=== PATIENT | female | born 1985 | race Caucasian/White ===

== ENCOUNTER 2025-05-14 08:10 | Emergency (ER) | payer OTHER, SELFPAY ==
--- OUTSIDE RECORDS SUMMARY | 2006-03-06 19:00 | XMS_ITS | Continuity of Care Document ---
Author Organization [facility] Address [address] [place] [address] Phone Care Team Providers Care Video Control Operator Name Role Phone Conversion MD, Doctor Unavailable Unavailabl e Advance Directives Directive Yes / No Effective Date File Name No Information Encounters Encounter Description Practice Location Reason(s) For Visit Diagnoses Date Provider Providers [facility] [address], [place], [place], [id number], tel:[phone] [facility] No Information Conversion Doctor. [address] [place] [address], [facility], . [employer] [facility], [address], [place], [place], [address], tel:[phone] [facility] IDIOPATHIC SCOLIOSIS Miriam Driscoll. [address] , [address], [place], [place], [id number], . tel:[phone] [employer], [address], [place], [place], [address], tel:[phone] [facility] SCOLIOSIS NEC Angelica Rios. [address], [address], [place], [place], [id number]. tel:[phone] [employer], [address], [place], [place], [address], tel:[phone] [facility] JOINT PAIN-SHLDER Miriam Driscoll. [address] , [address], [place], [place], [id number], . tel:[phone] [employer], [address], [place], [place], [address], tel:[phone] Nikhil [facility]ila JOINT PAIN-ANKLE Angelica Rios. [address], [address], [place], [place], [id number]. tel:[phone] Family History Family Member Type Diagnosis Age At Onset No Information Immunizations Vaccine Date Status Comments 38085 - TD administered Source: Source Unspecified Payers Payer name Insurance type Covered alliance party ID Authoriza tion(s) No Information Social History Type Description Quantity Date Captured Comments Sex Female Smoking Status No Information Chief Complaint And Reason For Visit No Information Reason For Referral Reason For Referral No Information History Of Present Illness Encounter Date Complaint History Of Prese nt Illness No Information Functional Status Date Functional Assessmen t No Information Instructions Date Instruction Additional Infor mation No Information Assessments Type Assessment Date No Information Patient Care Teams Name Effective Dates (start - stop) Status Members No Information
--- NOTE | ~2025-05-14 | XR_ITS ---
EXAMINATION: XR lumbar spine 2-3V DATE: 05/14/2025 09:01 INDICATION: Low back pain. Prior disc rupture. TECHNIQUE: Anteroposterior and lateral views of the lumbar spine, and cone-down lateral view of the lumbosacral junction were obtained. COMPARISON: None. FINDINGS: 9 degrees lumbar dextrocurvature. Sagittal alignment is normal. Minimal to mild likely physiologic anterior wedging at T10-T12. Lumbar vertebral body heights are normal. Moderate disc height loss at L5-S1. Minimal to mild disc height loss at at T9-T10 and T10-T11. Sacrum and bilateral sacroiliac joints are unremarkable. IMPRESSION: 1. 9 degrees lumbar dextrocurvature with moderate disc height loss at L5-S1 and mild disc height loss at a few levels in the lower thoracic spine. Reviewed, dictated and finalized at location A.
--- NOTE | 2025-05-14 08:11 | ED_ITS ---
HPI - Back Pain/Injury General Chief Complaint: Back Pain/Injury Stated Complaint: Lower Back Pain Time Seen by Provider: 05/14/25 08:32 Source: patient and RN notes reviewed Mode of arrival: ambulatory Limitations: no limitations History of Present Illness HPI Narrative: 39-year-old female presents with right low back pain that radiates down her leg. Reports symptoms started yesterday. She denies injury or trauma. Reports history of a ruptured disc with surgery in 2019. She did not have injury at that time. She reports symptoms started after she use an elliptical as she normally does. She denies loss of bowel or bladder function, perianal anesthesia, weakness in any extremity. Reports she has taken an [id number] pain medication without much relief. She denies abdominal pain, fever. MD elicited complaint: back pain Related Data Allergies Allergy/AdvReac Type Severity Reaction Status Date / Time No Known Allergies Allergy Verified 05/14/25 08:22 Review of Systems Review of Systems: CONSTITUTIONAL: Denies malaise, chills, sweats, or fever. CARDIOVASCULAR: Denies chest pain, palpitations, or edema. RESPIRATORY: Denies cough or dyspnea. GASTROINTESTINAL: Denies abdominal pain, nausea, vomiting, diarrhea, loss of bowel function GENITOURINARY: Denies dysuria, hematuria, frequency, loss of bladder function. SKIN: Denies rash or itching. MUSCULOSKELETAL: Reports right low back pain that radiates down the right leg NEUROLOGIC: Denies numbness, weakness, or headache. All systems reviewed & are unremarkable except as noted in HPI and below PMFSH Comments At time of signature, agree with nursing past medical, surgical, social and family history. There is no relevant family history pertinent to the presenting complaint Exam Narrative: GENERAL: Well-appearing, well-nourished, and in no acute distress. HEAD: Normocephalic, atraumatic. EYES: PERRLA and EOMI. NECK: Supple. No lymphadenopathy. CHEST: Clear to auscultation. No respiratory distress. HEART: Regular rate and rhythm. Distal pulses palpable and equal, cap refill <3 seconds MUSCULOSKELETAL: Normal range of motion and strength in all extremities; 5/5 strength with plantar flexion and extension. Normal sensation in dermatomal distributions with sensitivity to light touch and pain. Low midline back tenderness to palpation. Right paraspinal tenderness. Transfers from sitting to standing. SKIN: Warm, dry, no rash. NEURO: No focal deficits. Alert and oriented x3. Normal gait. PSYCH: Normal mood and affect Course Course Emergency Course: Patient is aware of diagnosis, understands and agrees to treatment plan. Anticipatory guidance given. Patient agrees to follow-up as directed and is aware of reasons to seek care at the emergency department. Portions of this record may have been created with voice recognition software Level of Care: [facility] Visit Vital Signs Vital signs: Reviewed. MDM - Back Pain/Injury MDM Narrative Medical decision making narrative: I evaluated this in the [facility] care. History is obtained from patient who is an independent historian and physical exam was performed.? Available medical records were reviewed. ? Exam findings and relevant testing show no acute concerns or changes; patient is non-toxic appearing and is in no distress. No risk factors or findings concerning for epidural abscess, diskitis, vertebral osteomyelitis, cord compression, cauda equina, vertebral fracture or bone malignancy, AAA, or pyelonephritis. Patient instructed to consider further imaging and workup through their primary care physician as an outpatient if symptoms persist. ? Differential diagnosis and treatment plan were discussed with the patient. Patient agrees with discussion and after shared medical decision making agrees with plan of care. All questions were answered to the patient's satisfaction. Patient is appropriate for outpatient treatment and follow-up. Critical Care Time Critical Care Time Critical Care Time: No Discharge Plan Discharge Clinical Impression: Nonspecific low back pain Patient Disposition: Home Condition: Stable Instructions: Acute Low Back Pain (ED) Additional Instructions: Please follow up with your Primary Care Doctor within 48-72 hours - call for an appointment. Walking and other gentle exercising several times a week has been shown to improve back pain; bed rest is not recommended. Take prednisone, take muscle relaxers every 8 hours as needed for muscle spasm- do not drive or make any important decisions while on this medication for it can make you drowsy. You may apply heat or cold to the area as needed. If you experience any worsening pain, swelling, numbness, weakness please go to ER. Contact your doctor or go to the emergency department if you develop problems with bladder or bowel function, weakness or loss of feeling in one or both of your legs, or any other serious concerns. Patient Language: [place] Prescriptions: New cyclobenzaprine 10 mg tablet 10 mg PO TID PRN (Reason: muscle spasm) Qty: 20 0RF prednisone 50 mg tablet 50 mg PO DAILY 5 Days Qty: 5 0RF Follow-up/Referrals: UNKNOWN,DOCTOR [Non-Staff] Stand Alone Forms: Work/School Release IP Time of Disposition: 09:18
--- OUTSIDE RECORDS SUMMARY | 2025-05-14 08:18 | XMS_ITS | Continuity of Care Document ---
Author Name [facility] Organization [facility] Care Team Providers Care Commissioning Agent Name Role Phone [facility] Unavailable Unavailable Problems Combined list of problems from Department of Defense and Veterans Affairs facilities. It does not include entries that were removed or entered in error. Problem Status Onset Date Problem Type Date of Resolution Comments Source PCOS- polycystic ovary syndrome Active 07/21/2024 Diagnosis 6130C-Af-C - [facility] Unspecified abnormalities of heart beat Active 09/04/2018 Condition DoD Amenorrhea, unspecified Active 09/04/2018 Condition DoD Other migraine, not intractable, without status migrainosus Active 09/04/2018 Condition DoD Acne Active Condition 6130C-Af-C- [facility] PCOS- polycystic ovary syndrome Active Condition 0356C-AF-C - [address] joint pain in the left knee Active Condition DoD joint pain in the right knee Active Condition DoD Medications Combined list of outpatient medications from Department of Defense and Veterans Affairs facilities.Medications provided include 1) outpatient medications from the last 15 months, and 2) patient-reported medications. Medication Details Route Status Patient Instructions Prescription Expires Prescription Number Last Dispense Date Ordering Provider Order Date Order Qty Source MetFORMIN (Eqv-Fortam et) 1000 mg oral tablet, extended release 1 tab(s), Oral, BID, # 60 tab(s), 3 total refill(s ), Maintena are, Pharmacy : [facility] Oral (given by mouth) Ordered 4 2023 60.0 6130C-A f-C-375 [facility] norethindro ne 0.35 mg oral tablet 1 tab(s), Oral, Daily, for contrace ption, # 84 tab(s), 0 total refill(s ), Maintena nce, Pharmacy : [facility] Oral (given by mouth) Ordered 4 2023 84.0 6130C-A f-C-375 [facility] Ortho Tri-Cyclen Lo oral tablet 1 tab(s), Oral, Daily, # 84 tab(s), 3 total refill(s ), [facility], Pharmacy : [facility] Oral (given by mouth) Ordered 4 2023 84.0 6130C-A f-C-375 Th [facility] tretinoin 0.05% topical cream 1 appl(s), Topical, every day at bedtime, wash and dry affected area and wait 10 to 20 minutes before applicat ion. May change to every other day if drying skin, # 40 g, 2 total refill(s ), [facility], Pharmacy : [facility] Topica l (on the skin) Ordered 4 2023 40.0 6130C-A f-C-375 Th [facility] Anabella 3 mg-0.02 mg oral tablet 1 tab(s), Oral, Daily, # 84 tab(s), 0 total refill(s ), [facility], Pharmacy : [facility] Oral (given by mouth) Discont inued 07/21/20242023 84.0 6130C-A f-C-375 Th [facility] Immunizations Combined list of available immunizations from the Department of Defense and Veterans Affairs facilities. Immunization Series Date Given Administered By Site Reaction Lot Number CVX Code Drug Science Professor Status Comments Source COVID Vaccine Pfizer 2020 Laura barajas Arm [id number] P[facility]ER complet ed COVID Vaccine Pfizer 11/25/20 Given Ambulat ory Pharmac y SARS-COV-2 (COVID-19) vaccine, mRNA, spike protein, LNP, preservative free, 30 mcg/0.3mL dose 2 2020 Unknown, Provider [id number] Pf[employer], Inc (PFR) complet ed SARS-COV- 2 (COVID-19 ) vaccine, mRNA, spike protein, LNP, preservat roberto free, 30 mcg/0.3mL dose DoD COVID Vaccine Pfizer 2020 Saroj novak Arm [id number] [facility] complet ed COVID Vaccine Pfizer 11/04/20 Given Ambulat ory Pharmac y SARS-COV-2 (COVID-19) vaccine, mRNA, spike protein, LNP, preservative free, 30 mcg/0.3mL dose 1 2020 Unknown, Provider [id number] [employer] (PFR) complet ed SARS-COV- 2 (COVID-19 ) vaccine, mRNA, spike protein, LNP, preservat roberto free, 30 mcg/0.3mL dose DoD Results Combined list of recent chemistry, hematology and other laboratory results from Department of Defense and Veterans Affairs, ranging from 15 months to all on record, depending upon the facility. Order Name Results Value Reference Range Date Interpretation Specimen Comments Source Hematology Platelets.L C 288 10^3/u L 06/[address] [place] [address] Hematology Neutrophils .LC 63 % 06/[address] [place] [address] Hematology Lymphs.LC 24 % 06/[address] [place] [address] Hematology Monocytes.L C 9 % 06/[address] [place] [address] Hematology Eos.LC 3 % 06/[address] [place] [address] Hematology Basos.LC 1 % 06/[address] [place] [address] Hematology Neutrophils (Abs).LC 4.3 10^3/u L 06/[address] [place] [address] Hematology Lymphs (Abs).LC 1.6 10^3/u L 06/[address] [place] [address] Hematology Monocytes (Abs).LC 0.6 10^3/u L 06/[address] [place] [address] Hematology Eos (Abs).LC 0.2 10^3/u L 06/[address] [place] [address] Hematology Basos (Abs).LC 0.1 10^3/u L 06/[address] [place] [address] Hematology Immature Granulocyte s.LC 0 % 06/[address] [place] [address] Immature Grans (Abs).LC 0.0 10^3/u L 06/29 Result Comment: Performed At: [address] [id number] Flores Johnson PhD Ph:[phone] [address] [place] [address] WBC.LC 6.8 10^3/u L 06/[address] [place] [address] Hematology RBC Count.LC 4.20 10^6/u L 06/[address] [place] [address] Hematology Hemoglobin. LC 13.1 g/dL 06/[address] [place] [address] Hematocrit. LC 39.7 % 06/[address] [place] [address] Hematology MCV.LC 95 fL 06/[address] [place] [address] MCH.LC 31.2 pg 06/[address] [place] [address] MCHC.LC 33.0 g/dL 06/[address] [place] [address] RDW.LC 12.0 % 06/[address] [place] [address] Chemistry TSH 1.640 mIU/L 0.270 - 4.200 06/29 N Interpretive Data: Recommend: TPO/Thyroper oxidase Antibody when TSH result is > 4.2 uIU/mL [facility] TIBC 279 ug/dL 250 - 400 06/29 N 5600A-U [facility] Chemistry Iron 93 ug/dL 37 - 145 06/29 N Interpretive Data: METHODOLOGY: Testing performed by colorimetric assay. [facility] UIBC, 186.0 ug/dL 112.0 - 347.0 06/29 N [facility] Transferrin Sat 33 % 14 - 50 06/29 N 5600A-U [facility] Chemistry Testosteron e Total 33.3 ng/dL 8.4 - 48.1 06/29 N Interpretive Data: Testing methodology: Electrochemi luminescence immunoassay (ECLIA) 5600A-U [facility] Chemistry Potassium Lvl 3.9 mmol/L 3.5 - 5.1 06/[address] [place] [address] Chemistry Sodium 140 mmol/L 136 - 145 06/[address] [place] [address] Chemistry Alk Phos 58 U/L 40 - 150 06/29 N -[address] [place] [address] Chemistry Glucose Lvl 97 mg/dL 74 - 99 06/29 N -[address] [place] [address] Chemistry ALT 32 U/L 5 - 55 06/29 N -[address] [place] [address] Chemistry AGAP 9.00 0.00 - 15.00 06/29 N -[address] [place] [address] Chemistry Albumin 4.00 g/dL 3.50 - 5.20 06/29 N -[address] [place] [address] Chemistry Creatinine Level 0.80 mg/dL 0.57 - 1.11 06/29 N -[address] [place] [address] Chemistry CO2 22 mmol/L 22 - 29 06/29 N -[address] [place] [address] Chemistry Chloride 109 mmol/L 98 - 107 06/[address] [place] [address] Chemistry Calcium 9.5 mg/dL 8.4 - 10.2 06/29 N -[address] [place] [address] Chemistry BUN/Creat Ratio 18 mg/dL 12 - 20 06/29 N -[address] [place] [address] Chemistry Protein Total 6.7 g/dL 6.4 - 8.3 06/29 N -[address] [place] [address] Chemistry Bilirubin Total 0.4 mg/dL 0.2 - 1.2 06/29 N -[address] [place] [address] Chemistry BUN 14 mg/dL 7 - 20 06/29 N -[address] [place] [address] Chemistry AST 19 U/L 5 - 34 06/29 N -[address] [place] [address] Chemistry Triglycerid es 94 mg/dL 7 - 149 06/29 N Interpretive Data: AGES 0-9: Desirable: < 75 mg/dL Borderline High: 75-99 mg/dL High: >/= 100 mg/dL AGES 10-19: Desirable: < 90 mg/dL Borderline High: 90-129 mg/dL High: >/= 130 mg/dL ADULTS: Desirable: < 150 mg/dL Borderline High: 150-199 mg/dL High: >/= 240 mg/dL Very High: >/= 500 mg/dL [address] [place] [address] Chemistry LDL/HDL 3 06/[address] [place] [address] Chemistry LDL 113 mg/dL 100 - 130 06/29 N Interpretive Data: AGES 0-19: Desirable: < 110 mg/dL Borderline High: 110-129 mg/dL High: >/= 130 mg/dL ADULTS: Desirable: <100 mg/dL Near/above optimal: 100-130 mg/dL Borderline High: 131-159 mg/dL High: 160-189 mg/dL Very High: 190 mg/dL [address] [place] [address] Chemistry HDL Cholesterol 42 mg/dL 40 - 59 06/29 N Interpretive Data: HDL (HIGH DENSITY LIPOPROTEIN) : ADULTS: Low: < 40 mg/dL High: >/= 60 mg/dL AGES 0 -19: Low: < 40 mg/dL Borderline Low: 40 - 45 mg/dL Acceptable: > 45 mg/dL [address] [place] [address] Chemistry Cholesterol Total 154 mg/dL 06/29 N Interpretive Data: According to the [place] [employer]: AGES 0-19: Desirable: < 170 mg/dL Borderline High: 170-199 mg/dL High Blood Cholesterol: >/= 200 mg/dL ADULTS: Desirable < 200 mg/dL Borderline High: 200-239 mg/dL High Blood Cholesterol: >/= 240 mg/dL [address] [place] [address] Chemistry Chol/HDL 4 mg/dL 06/[address] [place] [address] Chemistry Hemoglobin A1c 5.1 % 4.0 - 5.6 06/29 N Interpretive Data: Normal: 4.0 - 5.6% Increased Risk: 5.7 - 6.4% Diabetic Range: 6.5% For patients without diabetes, the normal range for the hemoglobin A1c test is between 4% and 5.6%. Hemoglobin A1c levels between 5.7% and 6.4% indicate increased risk of diabetes, and levels of 6.5% or higher indicate diabetes. Because studies have repeatedly shown that dow-vi-srfto ol diabetes results in complication s from the disease, the goal for people with diabetes is a hemoglobin A1c less than 7%. The higher the hemoglobin A1c, the higher the risks of developing complication s related to diabetes. If confirmation is needed, consider recalling the patient and ordering Hemoglobin Electrophore sis. - [address] [place] [address] Chemistry eAvg Glucose 100 mg/dL 06/[address] [place] [address] Chemistry eGFR CKD EPI 97 mL/min /1.73_ m2 06/29 Interpretive Data: Estimated Glomerular Filtration Rate (eGFR) calculated using the 2020 Chronic Kidney Disease-Epid emiology (CKD-EPI) Collaboratio n creatinine equation; units of measure are mL/min/1.73 m2. Results are only valid for adults (>=18 years) whose serum creatinine is in steady state. eGFR calculations are not valid for patients with acute kidney injury and for patients on dialysis. Creatinine-b ased estimates of kidney function may also be inaccurate in patients with reduced creatinine generation due to decreased muscle mass (e.g., malnutrition , severe hypoalbumine judit, sarcopenia, chronic neuromuscula r disease, amputations, severe heart failure or liver disease) and in patients with increased creatinine generation due to increased muscle mass (e.g., muscle builders, anabolic steroids) or increased dietary intake. CKD is diagnosed based on abnormalitie s of kidney structure or function, present for >3 months, with implications for health and disease. CKD is classified and staged based on cause, eGFR and albuminuria (quantified as urine albumin to creatinine ratio). An eGFR >60 mL/min/1.73 m2 in the absence of increased urine albumin excretion or structural abnormalitie s does not CKD. eGFR provides only an estimate of measured GFR within +/- 30% for most patients. As mentioned, nutritional status and muscle mass, among many factors, may lead to inaccuracy in the estimate. Consider ordering the creatinine-c ystatin C panel if better accuracy is needed for clinical decision-ruth ann ing. eGFR (mL/min/1.73 m2) CKD stage Interpretati on Normal 60-89 Mild decrease 45-59 Mild to moderate decrease 30-44 Moderate to severe decrease 15-29 Severe decrease <15 Kidney failure - [address] [place] [address] Vital Signs Combined list of inpatient and outpatient Vital Signs from Department of Defense and Veterans Affairs, ranging from 12 months to all on record, depending upon the facility. Vital Sign Value Date Comments Source Blood Pressure Manual Automatic 06/26/2024 13:12:00 1662L-Qs-S-[facility]Th [facility] Systolic Blood Pressure 121 mm[Hg] 06/26/2024 13:12:00 2840G-Rm-B-[facility] Diastolic Blood Pressure 83 mm[Hg] 06/26/2024 13:12:00 8508V-Ll-B-[facility] BP Site Left arm 06/26/2024 13:12:00 6130C -Af-C-[facility] Mean Arterial Pressure, Cuff (Calc) 96 mm[Hg] 06/26/2024 13:12:00 5134R-Hq-G-3 75Th [facility] Peripheral Pulse Rate 82 bpm 06/26/2024 13:12:00 9543J-Mv-S-[facility] Respiratory Rate 16 br/min 06/26/2024 13:12:00 9938I-Bm-D-[facility] Peripheral Pulse Rate 79 bpm 12/02/2023 11:58:00 6332D-VF-T-628th [facility] Blood Pressure Manual Automatic 12/02/2023 11:58:00 3709Y-XR-H-628th [facility] BP Site Right arm 12/02/2023 11:58:00 0356C -AF-C-628th [facility] Mean Arterial Pressure, Cuff (Calc) 99 mm[Hg] 12/02/2023 11:58:00 7343G-TJ-M-6 28th [facility] Temperature Oral 37 Chaya 12/02/2023 11:58:00 5409L-MH-V-628th [facility] Systolic Blood Pressure 132 mm[Hg] 12/02/2023 11:58:00 0856O-TN-A-628th [facility] Diastolic Blood Pressure 82 mm[Hg] 12/02/2023 11:58:00 7547M-FA-R-628th [facility] Respiratory Rate 18 br/min 12/02/2023 11:58:00 3156T-TV-G-628th [facility] Peripheral Pulse Rate 80 bpm 06/09/2024 13:11:00 4989N-Yc-N-[facility]Th [facility] Systolic Blood Pressure 143 mm[Hg] 06/09/2024 13:11:00 3456G-Fl-X-375[facility] Diastolic Blood Pressure 82 mm[Hg] 06/09/2024 13:11:00 2796T-Er-I-375[facility] BP Site Left arm 06/09/2024 13:11:00 6130C -Af-C-[facility] Mean Arterial Pressure, Cuff (Calc) 102 mm[Hg] 06/09/2024 13:11:00 2910H-Td-T-3 75Th [facility] Blood Pressure Manual Automatic 06/09/2024 13:11:00 9294V-Xp-P-375Th [facility] Encounters Combined list of: 1) Encounters from Department of Veterans Affairs facilities going backup to the last 18 months, not all [place] inpatient encounters are included; 2) Encounters from the Department of Defense facilities going backup to 280 months. Location Location Details Encounter Type Encounter Number Reason For Visit Attending Provider ADM Date DC Date Status Disposition Source [address] [place] [address] Cam [facility]Sco tt [facility] Blue) OUTPATIENT [id number] pain, swellin g in left knee x 2 weeks [phone] DAMIR SANCHES 04/29 Released w/o Limitations [address] [place] [address] Cam [facility] [address] [place] [address] Cam [facility])(Sco tt [facility] Res Green) TELE CONSULT [id number] Notes Entered by: KEANU VELARDE 20 May 2013 1122 ------- ------- ------- ------- -- Devin juan /Geovanny / DAMIR SANCHES 05/[address] [place] [address] Cam [facility])(S [facility] Res Tm Green) [address] [place] [address] Cam [facility])(Sco tt [facility] Green) TELE CONSULT [id number] Notes Entered by: RAPHAEL SKY 15 Jun 2013 1106 ------- ------- ------- ------- -- Isak Small - [id number] after 2:30 today/t omorrow MOSES SEQUEIRA 06/15 [facility] Cam [facility]S [facility] Fam Res Tm Green) [facility] Fam Res Tm Red) OUTPATIENT [id number] [place] lio kemp HUMPHREY NG 12/21 Released w/o Limitations [facility])(S [facility] Fam Res Tm Red) [facility] Fam Res Tm Red) TELE CONSULT [id number] Notes Entered by: Pérez JACQUES 18 Feb 2015 1432 ------- ------- ------- ------- -- Sx sore toe pat out of state/P ersinge r/035 [id number] DARIAN RGEGORY 02/18 [facility] [place] ([facility])(S [facility] Fam Res Tm Red) 31 [facility] [employer](Pete [facility] Team B [place]) OUTPATIENT [id number] routine annual pe ESTELA VILLAGRAN 02/28 Released w/o Limitations 31 [employer](A vi [facility] Team B [place]) [facility](87 [facility] Team Red) OUTPATIENT [id number] Phyisca l/Migra ASHLEIGH Michaud 09/04 Released w/o Limitations [facility](8 7 [facility] Team Red) [facility](87 [facility] Team White) OUTPATIENT [id number] 2 medicat ion refill ZBIGNIEWJOE 01/19 Released w/o Limitations [facility](8 7 [facility] Team White) [facility](87 [facility] Team Red) TELE CONSULT [id number] Notes Entered by: YUMIKO IGNACIO 27 Jan 2019 0824 ------- ------- ------- ------- -- Network Results - MR BRAIN W/O-03/11 ZBIGNIEWKIARAA A 01/27 [facility](8 7 [facility] Team Red) [facility](87 [facility] Team Red) OUTPATIENT [id number] Severe back pain ZBIGNIEWJOE 02/27 Released w/o Limitations [facility](8 7 [facility] Team Red) [facility](87 [facility] Team Blue) TELE CONSULT [id number] Notes Entered by: DEISY CORTES 11 Mar 2019 0753 ------- ------- ------- ------- -- Network Results - - 03/02/19 ROZ BHATT 03/11 [facility](8 7 [facility] Team Blue) 0055A-375 th [facility] silvia Between Visit [id number] 07/09 Discharge Disposition: Home or Self Care 0055A-3 75th [facility]- [facility] 0055C-375 th [facility] Between Visit [id number] 07/10 Discharge Disposition: Home or Self Care 0055C-3 75th [facility] 0055A-375 th [facility] silvia Between Visit [id number] 07/13 Discharge Disposition: Home or Self Care 0055A-3 75th [facility]- [facility] 0055A-375 th [facility] silvia Outpatient [id number] LEA BRUCE 07/15 Discharge Disposition: Home or Self Care 0055A-3 75th [facility] 6130C-Af- C-375Th [facility] silvia Clinic [id number] Polycys tic ovarian syndrom e KIERRA TKASUNIC 07/21 Discharge Disposition: Home or Self Care 6130C-A f-C-375 Th [facility]- [facility] Procedures Combined list of: 1) Procedures from Department of Veterans Affairs facilities going back up to thelast 18 months, not all VA non-surgical procedures are included; 2) All procedures from the Department of Defense facilities. Procedure Procedure Type Code Date Perfomer Comments Sourc e No data available for this section Ambulatory P harmacy Social History Combined list of available smoking, tobacco, and other social history from Department of Defense and Veterans Affairs facilities. Social History Type Response Date Comment Sourc e Tobacco Cigarette use: Never-cigarette user. Other Tobacco use: Never-other tobacco user (not cigarettes). Ambulatory Pharma cy Sexual Orientation Ambula tory Pharmacy Gender identity Ambulator y Pharmacy Sex Representation Female (finding) Unknown Organization This section is an empty social history section. DoD Assessment and Plan Combined list of future care activities from Department of Defense and Veterans Affairs facilities (e.g., assessment and plan notes, appointments, orders, and referrals). Additional future care activities may be listed in the Plan of Care section. Result Assessment and Plan Date Source Assessment and Plan Extracted from:Title : [facility]avy[facility]ic_PCOS virtual f/u Author: KIERRA EDWARDS DO Date: 07/21/24 1. P COS- polycystic ovary syndrome Patient clear competent without any signs of stress on gathering the phone line. C hronic uncontrolled -PCOS clinically diagnosed by [place] criteria 2 out of 3 p resent: -Hirsutism - I rregular periods - US pelvis was normal without evidence of cysts -Combined OCP side effect of daily bleeding (1 pad per day) -Discontinued combined OCP -Start P4 only pill, mini pill 0.35 mg prescribed -If progesterone only pill i s ineffective a t 1 month c onsider r eferral t o LAUNDRY AIDE g iven p atient does not desire IUD a nd would prefer O CPs o nly a nd after PCP attempt with combined and progesterone only w arrants s econdary opinion f or management -Continue metformin g iven metabolic risk of PCOS a nd counseled o n how to take the medication -Will follow-up virtually w ithin 1 month Capt Kevyn Altamirano), BROKO, Core Machine Tender, PGY-2 Cam [facility] Ordered: Addendum by DRAKE RENTERIA DO on July 21, 2024 13:38:36 CDT I certify that I was present for case discussion in the Family Medicine preceptor room at the time of this encounter. I have reviewed the note and agree with the findings, assessment, and plan except as I have documented below. Follow up as listed. All labs/imaging/consults to be followed by the ordering provider. Capt Vargas DO, [facility], Staff Physician Extracted from:Title: Javyunic_PCOS Author: KIERRA EDWARDS DO Date: 06/26/24 1. P COS- polycystic ovary syndrome Chronic uncomplicated PCOS clinically diagnosed by [place] criteria 2 out of 3 p resent: Hirsutism Irregular periods Started OCP Started metformin g iven metabolic risk of PCOS a nd counseled o n how to take the medication Will follow-up virtually w ith her lab results a nd ultrasound results w hich she will obtain Saturday -Labs ordered by previous provider: -Pelvic US to eval ovaries - r/o tumors and monitor PCOS O rdered: CBC w/ Diff Comprehensive Metabolic Panel Hemoglobin A1c Iron Studies Panel Lipid Panel Testosterone Total TSH w/ Reflex FT4 and Total T3 US Pelvis w/ Transvag non-OB Limited Ordered: metFORMIN(MetFORMIN (Eqv-Fortamet) 1000 mg oral tablet, extended release), 1 tab(s), Oral, BID, # 60 tab(s), 3 total refill(s), Maintenance, 1 tab(s) Oral BID, Pharmacy: [facility] 2. A cne 2. A cne H x anc exam c/w acne -continue with tretinoin tx -Discussed home daily skin care -Consider benzoyl peroxide if further control of acne desired Capt Evelia (), [facility] Core Machine Tender, PGY-2 Cam [facility] Addendum by DARIAN NEAL MD on June 26, 2024 09:13:24 CDT I certify that I was present for case discussion in the Family Medicine preceptor room at the time of this encounter. I have reviewed the note and agree with the findings, assessment, and plan except as I have documented below. Follow up as listed. All labs/imaging/consults to be followed by the ordering provider. Maj Kevyn Cabrera) Family Medicine Physician [facility] Cam [place], [place] Extracted from:Title: FM- PCOS Author: LEA LAROSE MD Date: 06/09/24 1. P COS- polycystic ovary syndrome Hx of PCOS d x i n 2019 - no records available Hx and physical c/w PCOS symptoms, but irregular cycles and breakthrough bleeding more common now.? Notes fatigue and wt gain. Plan: -Lab w/u for fatigue and PCOS eval -Pelvic US to eval ovaries - r/o tumors and monitor PCOS Ordered: CBC w/ Diff Comprehensive Metabolic Panel Hemoglobin A1c Iron Studies Panel Lipid Panel Testosterone Total TSH w/ Reflex FT4 and Total T3 US Pelvis w/ Transvag non-OB Limited 2. A cne Hx anc exam c/w acne -Start with tretinoin tx -Discussed home daily skin care -Add benzoyl peroxide if minimal change in 4-6 weeks Maj SUE, [employer], MD [employer] Family Medicine, PGY-3 Orders: norgestimate-ethinyl estradiol(Ortho Tri-Cyclen Lo oral tablet), 1 tab(s), Oral, Daily, # 84 tab(s), 3 total refill(s), Maintenance, 1 tab(s) Oral Daily, Pharmacy: [facility] [Not filled] tretinoin topical(tretinoin 0.05% topical cream), 1 appl(s), Topical, every day at bedtime, wash and dry affected area and wait 10 to 20 minutes before application. May change to every other day if drying skin, # 40 g, 2 total refill(s), Maintenance, 1 appl(s) Topical every day at bedtime,Instr:wash... [ Addendum by RIKKI SESAY MD on June 15, 2024 07:31:38 CDT I certify that I was present for case discussion in the Family Medicine preceptor room at the time of this encounter. I have reviewed the note and agree with the findings, assessment, and plan except as I have documented below. Follow up as listed. All labs/imaging/consults to be followed by the ordering provider. Rikki Sesay MD Extracted from:Title: Office: Initial visit Author: VIRGILIO JOHNSON PA-C Date: 12/02/23 1. S tress 37 Years F emale w ith recent life stressors. Hx of mild anxiety, self-managed, but has worsened with husbands recent deployment and loss of her 2 dogs. Discussed treatment options including counseling and medications. Mental Health referral placed for counseling. She would like to defer medication at this point F/u PRN Pt verbalized understanding and agrees to plan Referral: 37 Years F emale w ith recent life stressors and loss of pets, needing counseling. Please authorize for eval and treat. Thank you! Ordered: Referral Request 2.0 - DoD 2. P COS- polycystic ovary syndrome Hx of PCOS. Had brief discussion about treatment options. She will schedule with [facility] for further discussion and treatment options. F/u PRN Pt verbalized understanding and agrees to plan 05/14/2025 [id number] [facility] Assessment and Plan Extracted from:Title : [facility]_PCOS virtual f/u Author: KIERRA EDWARDS, DO Date: 07/21/24 1. P COS- polycystic ovary syndrome Patient clear competent without any signs of stress on gathering the phone line. C hronic uncontrolled -PCOS clinically diagnosed by [place] criteria 2 out of 3 p resent: -Hirsutism - I rregular periods - US pelvis was normal without evidence of cysts -Combined OCP side effect of daily bleeding (1 pad per day) -Discontinued combined OCP -Start P4 only pill, mini pill 0.35 mg prescribed -If progesterone only pill i s ineffective a t 1 month c onsider r eferral t o LAUNDRY AIDE g iven p atient does not desire IUD a nd would prefer O CPs o nly a nd after PCP attempt with combined and progesterone only w arrants s econdary opinion f or management -Continue metformin g iven metabolic risk of PCOS a nd counseled o n how to take the medication -Will follow-up virtually w ithin 1 month Capt Kevyn Altamirano), ODILIA, Core Machine Tender, PGY-2 [employer] Ordered: Addendum by RDAKE RENTERIA DO on July 21, 2024 13:38:36 CDT I certify that I was present for case discussion in the Family Medicine preceptor room at the time of this encounter. I have reviewed the note and agree with the findings, assessment, and plan except as I have documented below. Follow up as listed. All labs/imaging/consults to be followed by the ordering provider. Drake Renteria DO, , BROOK, Staff Physician Extracted from:Title: [facility]_PCOS Author: KIERRA EDWARDS, DO Date: 06/26/24 1. P COS- polycystic ovary syndrome Chronic uncomplicated PCOS clinically diagnosed by [place] criteria 2 out of 3 p resent: Hirsutism Irregular periods Started OCP Started metformin g iven metabolic risk of PCOS a nd counseled o n how to take the medication Will follow-up virtually w ith her lab results a nd ultrasound results w hich she will obtain Saturday -Labs ordered by previous provider: -Pelvic US to eval ovaries - r/o tumors and monitor PCOS O rdered: CBC w/ Diff Comprehensive Metabolic Panel Hemoglobin A1c Iron Studies Panel Lipid Panel Testosterone Total TSH w/ Reflex FT4 and Total T3 US Pelvis w/ Transvag non-OB Limited Ordered: metFORMIN(MetFORMIN (Eqv-Fortamet) 1000 mg oral tablet, extended release), 1 tab(s), Oral, BID, # 60 tab(s), 3 total refill(s), Maintenance, 1 tab(s) Oral BID, Pharmacy: [facility] 2. A cne 2. A cne H x anc exam c/w acne -continue with tretinoin tx -Discussed home daily skin care -Consider benzoyl peroxide if further control of acne desired Capt Evelia (), [facility] Core Machine Tender, PGY-2 [place] Addendum by DARIAN NEAL MD on June 26, 2024 09:13:24 CDT I certify that I was present for case discussion in the Family Medicine preceptor room at the time of this encounter. I have reviewed the note and agree with the findings, assessment, and plan except as I have documented below. Follow up as listed. All labs/imaging/consults to be followed by the ordering provider. Maj Kevyn Cabrera) Family Medicine Physician [facility] [place], [place] Extracted from:Title: FM- PCOS Author: LEA LAROSE MD Date: 06/09/24 1. P COS- polycystic ovary syndrome Hx of PCOS d x i n 2019 - no records available Hx and physical c/w PCOS symptoms, but irregular cycles and breakthrough bleeding more common now.? Notes fatigue and wt gain. Plan: -Lab w/u for fatigue and PCOS eval -Pelvic US to eval ovaries - r/o tumors and monitor PCOS Ordered: CBC w/ Diff Comprehensive Metabolic Panel Hemoglobin A1c Iron Studies Panel Lipid Panel Testosterone Total TSH w/ Reflex FT4 and Total T3 US Pelvis w/ Transvag non-OB Limited 2. A cne Hx anc exam c/w acne -Start with tretinoin tx -Discussed home daily skin care -Add benzoyl peroxide if minimal change in 4-6 weeks Maj SUE, [facility], MD [place] Family Medicine, PGY-3 Orders: norgestimate-ethinyl estradiol(Ortho Tri-Cyclen Lo oral tablet), 1 tab(s), Oral, Daily, # 84 tab(s), 3 total refill(s), Maintenance, 1 tab(s) Oral Daily, Pharmacy: [facility] [Not filled] tretinoin topical(tretinoin 0.05% topical cream), 1 appl(s), Topical, every day at bedtime, wash and dry affected area and wait 10 to 20 minutes before application. May change to every other day if drying skin, # 40 g, 2 total refill(s), Maintenance, 1 appl(s) Topical every day at bedtime,Instr:wash... [ Addendum by RIKKI SESAY MD on June 15, 2024 07:31:38 CDT I certify that I was present for case discussion in the Family Medicine preceptor room at the time of this encounter. I have reviewed the note and agree with the findings, assessment, and plan except as I have documented below. Follow up as listed. All labs/imaging/consults to be followed by the ordering provider. Rikki Sesay MD Extracted from:Title: Office: Initial visit Author: VIRGILIO JOHNSON PA-C Date: 12/02/23 1. S tress 37 Years F emale w ith recent life stressors. Hx of mild anxiety, self-managed, but has worsened with husbands recent deployment and loss of her 2 dogs. Discussed treatment options including counseling and medications. Mental Health referral placed for counseling. She would like to defer medication at this point F/u PRN Pt verbalized understanding and agrees to plan Referral: 37 Years F emale w ith recent life stressors and loss of pets, needing counseling. Please authorize for eval and treat. Thank you! Ordered: Referral Request 2.0 - [facility]D 2. P COS- polycystic ovary syndrome Hx of PCOS. Had brief discussion about treatment options. She will schedule with [facility] for further discussion and treatment options. F/u PRN Pt verbalized understanding and agrees to plan 05/14/2025 [id number] Functional Status Combined list of recent functional and cognitive assessments recorded at [employer]VA Functional Terrell Measurement (FIM) Scale: 1 = Total Assistance (Subject = 0% +), 2 = Maximal Assistance (Subject = 25% +), 3 = Moderate Assistance (Subject = 50% +), 4 = Minimal Assistance (Subject = 75% +), 5 = Supervision, 6 = Modified Terrell (Device), 7 = Complete Terrell (Timely, Safely). Assessment Date/Time Source Assessment Type Assessment Skill Assessment Score Assessment Details No data available for this section
[2025-05-14 08:24] VITALS: BP 102/88; PULSE 73; RESP 20; TEMP 36.6; O2SAT 100
[2025-05-14] MEDS: KETOROLAC (*BKC) 60 MG/2 ML VIAL IM (08:44)
== END 2025-05-14 09:20 | disposition home or self-care (01) ==
PROVIDERS: Emergency Provider Nurse Practitioner
DX: M54.50 Low back pain, unspecified (principal); E28.2 Polycystic ovarian syndrome
CPT/HCPCS: 72100; 96372; 99203; G0463; J1885